=== PATIENT | female | born 1965 | race Caucasian/White ===

== ENCOUNTER 2018-02-01 09:16 | Day surgery (SDC) | payer MEDICARE, MEDICAID ==
[~2018-02-01 09:16] MED LIST: Lactated Ringers 1,000 ML IV SCH
[2018-02-01] MEDS ORDERED: Ondansetron 4 MG/2 ML SDV IVPUSH ONE (11:20)
[2018-02-01] MEDS ORDERED: Midazolam 1 MG/ML 2 ML SDV IV ONE (11:20)
[2018-02-01] MEDS ORDERED: Glycopyrrolate 0.2 MG/ML 5 ML MDV IV ONE (11:20)
[2018-02-01] MEDS ORDERED: Ketamine 500 mg/10 ML MDV IV ONE (11:20)
[2018-02-01] MEDS ORDERED: Propofol 200 MG/20 ML SDV IV ONE (11:20)
--- NOTE | 2018-02-01 12:10 | PCM.OPNOTE ---
- General Post-Op/Procedure Note Date of Surgery/Procedure: 02/01/18 Operative Procedure(s): c scope Findings: nl exam Pre Op Diagnosis: ibs Post-Op Diagnosis: nl exam Anesthesia Technique: MAC Primary Surgeon: Antoine Zabala Anesthesia Provider: Irena Corral Pathology: none Complications: None Condition: Good Free Text/Narrative:: see dictation
[2018-02-01 13:06] VITALS: BP 99/70
--- NOTE | 2018-02-01 15:36 | OR ---
DATE OF OPERATION: 02/01/2018 SURGEON: Antoine Zabala MD PROCEDURE PERFORMED: Colonoscopy. PREOPERATIVE DIAGNOSIS: Irritable bowel syndrome POSTOPERATIVE DIAGNOSIS: Irritable bowel syndrome. INDICATIONS FOR PROCEDURE: This is a 52-year-old white female who has a history of irritable bowel, constipation and diarrhea with diarrhea predominating. She has never had a colonoscopy, was offered and accepted same. DESCRIPTION OF OPERATION: After an excellent IV sedation was administered, digital rectal exam was performed. No marked abnormality was noted. The flexible colonoscope was inserted and advanced without difficulty to the patient's cecum. The prep was marginal. There was a fair amount of liquid stool. However, we were able to irrigate and get a good exam of the mucosa. The following findings were noted. Ascending colon, unremarkable. Transverse colon, unremarkable. Descending colon, unremarkable. Sigmoid and rectum unremarkable. Colon was deflated as the scope was removed. The patient tolerated the procedure well, and was taken to recovery room in good condition. Repeat colonoscopy in 10 years. /[id number] /ZEINA
== END 2018-02-01 13:15 | disposition home or self-care (01) ==
LOC: FB.SDS 09:16
PROVIDERS: ATTEND Surgery
DX: K58.2 Mixed irritable bowel syndrome (principal); F60.3 Borderline personality disorder; F31.9 Bipolar disorder, unspecified; F90.0 Attention-deficit hyperactivity disorder, predominantly inattentive type; N32.81 Overactive bladder; F41.9 Anxiety disorder, unspecified; J45.909 Unspecified asthma, uncomplicated; F17.210 Nicotine dependence, cigarettes, uncomplicated; Z79.890 Hormone replacement therapy; Z79.51 Long term (current) use of inhaled steroids; Z79.899 Other long term (current) drug therapy
CPT/HCPCS: 00811; 45378; J2250; J2405; J2704; J7120